=== PATIENT | male | born 1985 | race Caucasian/White ===

== ENCOUNTER 2022-05-09 13:48 | Emergency (ER) | payer OTHER ==
[~2022-05-09] VITALS: Ht 175.3 cm; Wt 81.6 kg
[2022-05-09] MEDS ORDERED: HYDR15CR41 TP (14:13)
== END 2022-05-09 14:18 | disposition home or self-care (01) ==
LOC: ER 13:48
DX: B35.0 Tinea barbae and tinea capitis (principal); Z88.0 Allergy status to penicillin
CPT/HCPCS: A4663

== ENCOUNTER 2023-08-12 11:23 | Emergency (ER) | payer OTHER ==
[~2023-08-12] VITALS: Ht 175.3 cm; Wt 86.2 kg
[~2023-08-12 11:23] MED LIST: HYDR15CR41 TP
[2023-08-12 12:16] LABS: *BLOOD, URINE NEGATIVE (NEGATIVE); *CLARITY,URINE CLEAR (CLEAR); *COLOR,URINE YELLOW (YELLOW); *KETONES,URINE TRACE (NEGATIVE); *PROTEIN,URINE NEGATIVE (NEGATIVE); *UROBILINOGEN,URINE 0.2 E.U./dl (NORMAL); LEUKOCYTE ESTERASE ,URINE NEGATIVE (NEGATIVE); NITRITE, URINE NEGATIVE (NEGATIVE); PH,URINE 5.5 (5.0-8.0); UGLUCOSE NEGATIVE (NEGATIVE)
[2023-08-12 12:18] LABS: *BILIRUBIN,URIN 1+ (NEGATIVE)
[2023-08-12 12:23] LABS: BASOPHILS # (AUTO) 0.1 K/UL (0.0-0.2); BASOPHILS % (AUTO) 1.3 % (0.0-2.0); EOSINOPHILS # (AUTO) 0.1 K/uL (0.0-0.7); EOSINOPHILS % (AUTO) 1.6 % (0.0-7.0); HEMATOCRIT 38.4 % (36.7-47.1); HEMOGLOBIN 12.6 g/dL (12.5-16.3); MEAN CORPUSCULAR HEMOGLOBIN 30.2 uug (23.8-33.4); MEAN CORPUSCULAR HGB CONC 33 g/dL (32.5-36.3); MEAN CORPUSCULAR VOLUME 92.3 fL (73.0-96.2); MONOCYTES # (AUTO) 0.5 K/uL (0.1-1.30); MONOCYTES % (AUTO) 7.8 % (0.0-11.0); NEUTROPHILS # (AUTO) 4.3 K/uL (1.8-8.9); NEUTROPHILS % (AUTO) 61.3 % (38.5-71.5); PLATELET COUNT (AUTO) 315 K/uL (152-348); RED BLOOD CELL COUNT(AUTO) 4.16 MIL/uL (4.06-5.63); RED CELL DISTRIBUTION WIDTH 12.8 % (12.1-16.2)
[2023-08-12 12:27] LABS: ALKALINE PHOSPHATASE 74 U/L (50-136); ASPARTATE AMINOTRANSFERASE 6 U/L (15-37); BILIRUBIN,DIRECT 0.1 mg/dL (0.0-0.2); BILIRUBIN,TOTAL 0.3 mg/dL (0.2-1.0); CALCIUM 8.4 mg/dL (8.5-10.1); CARBON DIOXIDE 25 mmol/L (21-32); CHLORIDE 107 mmol/L (98-107); CREATININE 0.8 mg/dL (0.6-1.3); GLUCOSE 119 mg/dL (74-106); POTASSIUM 3.8 mmol/L (3.5-5.1); SODIUM SERUM 141 mmol/L (136-145); UREA NITROGEN, BLOOD 15 mg/dL (7-18)
[2023-08-12 12:28] LABS: ALANINE AMINOTRANSFERASE 21 U/L (16-63); ALBUMIN 3.4 g/dL (3.4-5.0); LIPASE 35 U/L (16-77); TOTAL PROTEIN, SERUM 6.8 g/dL (6.4-8.2)
[2023-08-12 12:44] LABS: SQUAMOUS EPITHELIAL CELL,UR FEW /HPF (NONE SEEN); WBC,URINE 0-3 /HPF (0-3)
[2023-08-12] MEDS ORDERED: HYDR-3972 PO (12:51)
[2023-08-12] MEDS ORDERED: NAPR-1164 PO (12:51)
[2023-08-12 13:02] VITALS: BP 110/68; TEMP 97.8; O2SAT 96
== END 2023-08-12 13:00 | disposition home or self-care (01) ==
LOC: ER 11:23
DX: M54.50 Low back pain, unspecified (principal); Z79.899 Other long term (current) drug therapy; Z88.0 Allergy status to penicillin
CPT/HCPCS: 36415; 71045; 83690; 84484; 85025; 85651; 85730; 93005; A4606; A4663